=== PATIENT | male | born 1985 | race African-American/Black ===

== ENCOUNTER 2022-10-15 11:17 | Emergency (ER) | payer MEDICAID ==
[~2022-10-15] VITALS: Ht 175.3 cm; Wt 74.0 kg
[2022-10-15 11:21] VITALS: O2SAT 99
[2022-10-15] MEDS ORDERED: IBUPROFEN 400MG TABLET PO ONE (12:15)
[2022-10-15] MEDS ORDERED: BO1 TP (15:08)
[2022-10-15] MEDS ORDERED: NAPR275T96 MT (15:08)
[2022-10-15] MEDS ORDERED: IBUPROFEN 400MG TABLET PO NR (15:15)
[2022-10-15 15:51] VITALS: BP 128/78; PULSE 78; RESP 18; TEMP 98.7
== END 2022-10-15 15:56 | disposition home or self-care (01) ==
LOC: ER 11:31
DX: S80.02XA Contusion of left knee, initial encounter (principal); V09.9XXA Pedestrian injured in unspecified transport accident, initial encounter; Y93.89 Activity, other specified; Y92.89 Other specified places as the place of occurrence of the external cause; Y99.8 Other external cause status
CPT/HCPCS: 73560; 99283